=== PATIENT | male | born 1960 | race Caucasian/White ===

== ENCOUNTER 2016-08-08 20:39 | Emergency (ER) | payer OTHER ==
[~2016-08-08 20:39] MED LIST: FLEXERIL PO; FLEXERIL10 MG PO; IBUPROFEN PO; KETOPROFEN PO; LORTAB 5/500 TA1 TA1 PO; VICODIN 5/1 TAB 5/50 PO
== END 2016-08-08 21:02 | disposition home or self-care (01) ==
LOC: CFTX 20:39
DX: L03.115 Cellulitis of right lower limb (principal); F17.200 Nicotine dependence, unspecified, uncomplicated; Z23 Encounter for immunization
CPT/HCPCS: 82947; 90471; 90715; 99283